=== PATIENT | male | born 1995 | race Caucasian/White ===

== ENCOUNTER 2022-04-18 20:59 | Emergency (ER) | payer SELFPAY ==
[~2022-04-18] VITALS: Ht 175.3 cm; Wt 81.6 kg
[~2022-04-18 20:59] MED LIST: MAGN400T11 PO
[2022-04-18 21:19] VITALS: BP 138/74
--- NOTE | 2022-04-18 21:25 | NUR ---
TO LOBBY FOLLOWING TRIAGE
--- NOTE | 2022-04-18 23:39 | NUR ---
SPLINTED PATIENT FINGER AND MO WRAPPED. PT TOLERATED WELL. PATIENT RESPONSIVE TO SENSATIONS AND ROM. ERMD MADE AWARE.
[2022-04-18] MEDS ORDERED: NAPR-54 PO (23:50)
--- NOTE | 2022-04-18 23:58 | NUR ---
PATIENT DISCHARGED BY ERMD.
== END 2022-04-18 23:58 | disposition home or self-care (01) ==
LOC: MED 20:59
DX: S62.613A Displaced fracture of proximal phalanx of left middle finger, initial encounter for closed fracture (principal); J45.909 Unspecified asthma, uncomplicated; Z79.899 Other long term (current) drug therapy; W22.8XXA Striking against or struck by other objects, initial encounter; Y93.89 Activity, other specified; Y92.89 Other specified places as the place of occurrence of the external cause; Y99.8 Other external cause status
CPT/HCPCS: 73130; 99283

== ENCOUNTER 2024-06-02 20:13 | Emergency (ER) | payer SELFPAY ==
[~2024-06-02] VITALS: Ht 175.3 cm; Wt 79.4 kg
[~2024-06-02 20:13] MED LIST changes: +NAPR-337 PO
[2024-06-02 20:24] VITALS: BP 136/91; PULSE 89; RESP 18; TEMP 98; O2SAT 99
== END 2024-06-02 21:09 | disposition home or self-care (01) ==
LOC: MED 20:13
DX: S61.213A Laceration without foreign body of left middle finger without damage to nail, initial encounter (principal); J45.909 Unspecified asthma, uncomplicated; Z79.899 Other long term (current) drug therapy; W26.8XXA Contact with other sharp object(s), not elsewhere classified, initial encounter; Y93.89 Activity, other specified; Y92.89 Other specified places as the place of occurrence of the external cause; Y99.8 Other external cause status
CPT/HCPCS: 12001; 90471; 90715; 99283